=== PATIENT | female | born 1955 | race Caucasian/White ===

== ENCOUNTER → 2017-05-31 | Outpatient (REF) | payer OTHER ==
[2017-05-31 11:43] LABS: BASO # 0.1 10^3/uL (0.0-0.2); EOS # 0.4 10^3/uL (0.0-0.50); EOS % 4.8 % (0.0-3.0); IMMATURE GRANULOCYTE % 0.2 % (0-0); LYMPH # 3.5 10^3/uL (1.5-4.5); LYMPH % 37.5 % (24.0-44.0); MEAN CORPUSCULAR HEMOGLOBIN 29.3 pg (27.0-33.0); MEAN CORPUSCULAR HGB CONC 32.6 g/dl (32.0-36.5); MEAN CORPUSCULAR VOLUME 89.9 fl (80.0-96.0); MONO # 0.5 10^3/uL (0.0-0.8); MONO % 5.5 % (0.0-5.0); NEUTROPHILS # 4.7 10^3/uL (1.8-7.7); PLATELET COUNT, AUTOMATED 367 10^3/uL (150-450); RED CELL DISTRIBUTION WIDTH 13.6 % (11.5-14.5); WHITE BLOOD COUNT 9.2 10^3/uL (4.0-10.0)
[2017-05-31 12:08] LABS: ANION GAP 6 MEQ/L (8-16); BLOOD UREA NITROGEN 17 MG/DL (7-18); CALCIUM LEVEL 9.3 MG/DL (8.5-10.1); CARBON DIOXIDE LEVEL 28 MEQ/L (21-32); CHLORIDE LEVEL 108 MEQ/L (98-107); CREATININE FOR GFR 0.64 MG/DL (0.55-1.02); GLOMERULAR FILTRATION RATE > 60.0 (>51); GLUCOSE, FASTING 83 MG/DL (70-105); POTASSIUM SERUM 4.3 MEQ/L (3.5-5.1); SODIUM LEVEL 142 MEQ/L (136-145)
== END ==
LOC: M SFHCCLAY 08:39
PROVIDERS: ATTEND Family Medicine
DX: Z01.818 Encounter for other preprocedural examination (principal); K57.20 Diverticulitis of large intestine with perforation and abscess without bleeding

== ENCOUNTER → 2023-01-16 | Outpatient (REF) | payer OTHER ==
[2023-01-16 17:51] LABS: HEMOGLOBIN 13.9 g/dl (12.0-15.5); MEAN CORPUSCULAR HEMOGLOBIN 29.6 pg (27.0-33.0); MEAN CORPUSCULAR HGB CONC 32.3 g/dl (32.0-36.5); MEAN CORPUSCULAR VOLUME 91.5 fl (80.0-96.0); PLATELET COUNT, AUTOMATED 336 10^3/uL (150-450); WHITE BLOOD COUNT 8.8 10^3/uL (4.0-10.0)
[2023-01-16 18:15] LABS: ALBUMIN 3.6 G/DL (3.2-5.2); ALKALINE PHOSPHATASE 91 U/L (46-116); ALT/SGPT 33 U/L (7.0-40); AST/SGOT 22 U/L (<34); BILIRUBIN,TOTAL 0.8 MG/DL (0.3-1.2); BLOOD UREA NITROGEN 15 MG/DL (9-23); CALCIUM LEVEL 9.2 MG/DL (8.3-10.6); CARBON DIOXIDE LEVEL 23 MMOL/L (20-31); CHLORIDE LEVEL 103 MMOL/L (98-107); CHOLESTEROL LEVEL 178 MG/DL (<200); CHOLESTEROL RISK RATIO 3.52 (<5); CREATININE FOR GFR 0.89 MG/DL (0.55-1.30); GLOMERULAR FILTRATION RATE > 60.0 (>45); GLUCOSE, FASTING 83 MG/DL (74-106); HDL CHOLESTEROL 50.5 MG/DL (>40); LDL CHOLESTEROL 107.7 MG/DL (<100); NON-HDL-C 127.5 MG/DL; POTASSIUM SERUM 4.2 MMOL/L (3.5-5.1); SODIUM LEVEL 134 MMOL/L (136-145); THYROID STIMULATING HORMONE 2.033 uIU/ML (0.55-4.78); TOTAL PROTEIN 7.1 G/DL (5.7-8.2); TRIGLYCERIDES LEVEL 99 MG/DL (<150)
[2023-01-16 18:16] LABS: FREE T4 1.26 NG/DL (0.89-1.76)
== END ==
LOC: M LABDRAWC 16:54
PROVIDERS: ATTEND Nurse Practitioner Family
DX: E78.2 Mixed hyperlipidemia (principal); Z82.49 Family history of ischemic heart disease and other diseases of the circulatory system

== ENCOUNTER → 2024-04-29 | Outpatient (REF) | payer MEDICARE ==
[2024-04-29 12:09] LABS: ALBUMIN 3.4 G/DL (3.2-5.2); ALKALINE PHOSPHATASE 97 U/L (46-116); ALT/SGPT 23 U/L (7.0-40); AST/SGOT 15 U/L (<34); BASO # 0.1 10^3/uL (0.0-0.2); BILIRUBIN,TOTAL 0.3 MG/DL (0.3-1.2); BLOOD UREA NITROGEN 14 MG/DL (9-23); CALCIUM LEVEL 9.7 MG/DL (8.3-10.6); CARBON DIOXIDE LEVEL 29 MMOL/L (20-31); CHLORIDE LEVEL 104 MMOL/L (98-107); CHOLESTEROL LEVEL 197 MG/DL (<200); CHOLESTEROL RISK RATIO 3.51 (<5); CREATININE FOR GFR 0.78 MG/DL (0.55-1.30); EOS # 0.3 10^3/uL (0.0-0.5); EOS % 3.9 % (0.0-3.0); GLOMERULAR FILTRATION RATE > 60.0 (>45); GLUCOSE, FASTING 91 MG/DL (74-106); HEMATOCRIT 45.8 % (36.0-47.0); HEMOGLOBIN 14.7 g/dl (12.0-15.5); LDL CHOLESTEROL 118.6 MG/DL (<100); LYMPH # 2.2 10^3/uL (1.5-5.0); LYMPH % 26.5 % (24.0-44.0); MEAN CORPUSCULAR HEMOGLOBIN 29.2 pg (27.0-33.0); MEAN CORPUSCULAR HGB CONC 32.1 g/dl (32.0-36.5); MEAN CORPUSCULAR VOLUME 91.1 fl (80.0-96.0); MONO # 0.5 10^3/uL (0.0-0.8); MONO % 6.3 % (2.0-8.0); NEUTROPHILS # 5.2 10^3/uL (1.5-8.5); NEUTROPHILS % 62.1 % (36.0-66.0); PLATELET COUNT, AUTOMATED 343 10^3/uL (150-450); POTASSIUM SERUM 4.6 MMOL/L (3.5-5.1); RED BLOOD COUNT 5.03 10^6/uL (4.00-5.40); SODIUM LEVEL 136 MMOL/L (136-145); TOTAL PROTEIN 7.2 G/DL (5.7-8.2); TRIGLYCERIDES LEVEL 112 MG/DL (<150); WHITE BLOOD COUNT 8.4 10^3/uL (4.0-10.0)
[2024-04-29 12:11] LABS: FREE T4 1.27 NG/DL (0.89-1.76)
[2024-04-29 12:33] LABS: HEMOGLOBIN A1c 5.5 % (4.0-6.0)
== END ==
LOC: M SFHCCLAY 08:39
PROVIDERS: ATTEND Nurse Practitioner Family
DX: Z00.00 Encounter for general adult medical examination without abnormal findings (principal); F17.211 Nicotine dependence, cigarettes, in remission; K21.9 Gastro-esophageal reflux disease without esophagitis; Z13.220 Encounter for screening for lipoid disorders; Z13.1 Encounter for screening for diabetes mellitus; C53.9 Malignant neoplasm of cervix uteri, unspecified; Z86.39 Personal history of other endocrine, nutritional and metabolic disease; Z13.6 Encounter for screening for cardiovascular disorders

== ENCOUNTER → 2024-07-07 | Outpatient (CLI) | payer MEDICARE ==
[~2024-07-07] MED LIST: ISOVUE-370 76% 100ML VIAL As Ordered ONE
== END ==
LOC: M RAD 12:44
PROVIDERS: ATTEND Internal Medicine Hematology & Oncology
DX: C53.9 Malignant neoplasm of cervix uteri, unspecified (principal); Z90.49 Acquired absence of other specified parts of digestive tract; K43.9 Ventral hernia without obstruction or gangrene; I70.0 Atherosclerosis of aorta; J43.2 Centrilobular emphysema
CPT/HCPCS: 71260; 74177; Q9967

== ENCOUNTER → 2024-07-20 | Outpatient (CLI) | payer MEDICARE | LOC: M ONCR 08:58 | PROVIDERS: ATTEND General Practice | DX: C53.1 Malignant neoplasm of exocervix (principal); R59.9 Enlarged lymph nodes, unspecified; Z86.718 Personal history of other venous thrombosis and embolism; Z98.84 Bariatric surgery status; Z90.49 Acquired absence of other specified parts of digestive tract; Z87.891 Personal history of nicotine dependence; Z88.0 Allergy status to penicillin; Z88.1 Allergy status to other antibiotic agents ==

== ENCOUNTER → 2024-07-24 | Outpatient (CLI) | payer MEDICARE ==
[~2024-07-24] VITALS: Ht 162.6 cm; Wt 88.0 kg
[~2024-07-24] MED LIST changes: +ACET-683 PO; -ISOVUE-370 76% 100ML VIAL As Ordered ONE; +LIDO30CR18 TOP; +LIDOCAINE 1% MDV 20ML VIAL As Ordered ONE; +MIDAZOLAM INJ 2MG/2ML VIAL As Ordered ONE; +NS (Normal Saline) 0.9% 1,000 ML IV SCH; +ceFAZolin 2 GM/D5W 50 ML IV BAG As Ordered ONE; +fentaNYL 100 MCG/2 ML INJECTION As Ordered ONE
[2024-07-24 10:06] VITALS: TEMP 98.4
[2024-07-24] MEDS: ceFAZolin SOD 2 GM in IV 1 EA IV ONE (10:52)
[2024-07-24 11:56] VITALS: BP 128/82; O2SAT 99
== END ==
LOC: M IRPRO 09:18
PROVIDERS: ATTEND Internal Medicine Hematology & Oncology
DX: C53.9 Malignant neoplasm of cervix uteri, unspecified (principal)
CPT/HCPCS: 36561; 99152; J0690; J1642; J2250; J3010

== ENCOUNTER → 2024-07-28 | Outpatient (CLI) | payer MEDICARE ==
[~2024-07-28] MED LIST changes: -LIDOCAINE 1% MDV 20ML VIAL As Ordered ONE; -MIDAZOLAM INJ 2MG/2ML VIAL As Ordered ONE; -NS (Normal Saline) 0.9% 1,000 ML IV SCH; -ceFAZolin 2 GM/D5W 50 ML IV BAG As Ordered ONE; -fentaNYL 100 MCG/2 ML INJECTION As Ordered ONE
== END ==
LOC: M PLARAD 11:17
PROVIDERS: ATTEND General Practice
DX: C53.1 Malignant neoplasm of exocervix (principal)
CPT/HCPCS: 78815; A9552

== ENCOUNTER → 2024-11-02 | Outpatient (RCR) | payer MEDICARE ==
[~2024-11-02] MED LIST changes: +FLUC10TA PO; +LEVO1TAB39 PO; +ONDA-84 PO; +OXYB-54 PO; +PROC10TA5 PO
== END ==
LOC: M ONCR 10-13 07:51
PROVIDERS: ATTEND General Practice
DX: Z51.0 Encounter for antineoplastic radiation therapy (principal); C53.1 Malignant neoplasm of exocervix

== ENCOUNTER 2024-11-25 08:34 | Outpatient (RCR) | payer MEDICARE ==
[~2024-11-25 08:34] MED LIST changes: -PROHANCE 279.3MG/ML 15ML VIAL As Ordered ONE; -PROHANCE 279.3MG/ML 5ML VIAL As Ordered ONE
== END 2024-12-02 ==
LOC: M ONCR 08:34
PROVIDERS: ATTEND General Practice
DX: Z51.0 Encounter for antineoplastic radiation therapy (principal); C53.1 Malignant neoplasm of exocervix

== ENCOUNTER → 2024-11-25 | Outpatient (CLI) | payer MEDICARE ==
[~2024-11-25] MED LIST changes: +NYST-38 SSP; +PROHANCE 279.3MG/ML 15ML VIAL As Ordered ONE; +PROHANCE 279.3MG/ML 5ML VIAL As Ordered ONE
== END ==
LOC: M RAD 09:34
PROVIDERS: ATTEND General Practice
DX: C53.1 Malignant neoplasm of exocervix (principal)

== ENCOUNTER → 2025-03-01 | Outpatient (CLI) | payer MEDICARE | LOC: M PLARAD 09:53 | PROVIDERS: ATTEND General Practice | DX: C53.1 Malignant neoplasm of exocervix (principal) | CPT/HCPCS: 78815; A9552 ==

== ENCOUNTER → 2025-03-12 | Outpatient (CLI) | payer MEDICARE | LOC: M ONCR 09:39 | PROVIDERS: ATTEND General Practice | DX: C53.1 Malignant neoplasm of exocervix (principal); Z79.899 Other long term (current) drug therapy; Z88.0 Allergy status to penicillin; Z92.21 Personal history of antineoplastic chemotherapy; Z92.3 Personal history of irradiation ==

== ENCOUNTER → 2025-05-21 | Outpatient (CLI) | payer MEDICARE ==
[~2025-05-21] MED LIST changes: +FAMO20TA PO; +METO5TAB2 PO
[2025-05-21 14:28] LABS: BASO # 0.0 10^3/uL (0.0-0.2); BASO % 0.4 % (0.0-1.0); EOS # 0.2 10^3/uL (0.0-0.5); EOS % 2.4 % (0.0-3.0); LYMPH # 0.7 10^3/uL (1.5-5.0); LYMPH % 10.8 % (24.0-44.0); MONO # 0.5 10^3/uL (0.0-0.8); MONO % 6.8 % (2.0-8.0); NEUTROPHILS # 5.4 10^3/uL (1.5-8.5); NEUTROPHILS % 79.3 % (36.0-66.0); PLATELET COUNT, AUTOMATED 308 10^3/uL (150-450)
[2025-05-21 14:56] LABS: ALT/SGPT < 9 U/L (7.0-40); AST/SGOT 13 U/L (<34); CALCIUM LEVEL 9.3 MG/DL (8.3-10.6); CARBON DIOXIDE LEVEL 27 MMOL/L (20-31); CHLORIDE LEVEL 104 MMOL/L (98-107); CREATININE FOR GFR 0.71 MG/DL (0.55-1.30); GLOMERULAR FILTRATION RATE > 90.0 (>45); POTASSIUM SERUM 4.2 MMOL/L (3.5-5.1); SODIUM LEVEL 140 MMOL/L (136-145)
[2025-05-21 15:05] LABS: ESTIMATED AVERAGE GLUCOSE 108.0 MG/DL (60-110)
[2025-05-24] MEDS: SODIUM CHLORIDE 0.9% INJ 10 ML SYR IV PRN (14:30)
== END ==
LOC: M ONCR 13:07
PROVIDERS: ATTEND General Practice
DX: C53.1 Malignant neoplasm of exocervix (principal); R19.7 Diarrhea, unspecified; R11.0 Nausea; R12 Heartburn; Z79.899 Other long term (current) drug therapy; Z92.21 Personal history of antineoplastic chemotherapy; Z92.3 Personal history of irradiation
CPT/HCPCS: 36591; 80053; 83036; 85025; J1642

== ENCOUNTER 2025-06-06 09:22 | Emergency (ER) | payer MEDICARE ==
[~2025-06-06] VITALS: Ht 154.9 cm; Wt 72.3 kg
[2025-06-06] MEDS ORDERED: OXYB-54 (09:32)
[2025-06-06] MEDS: NS (Normal Saline) 0.9% 1,000 ML IV ONE (11:10)
[2025-06-06] MEDS: HALOPERIDOL LACTATE 5 MG/ML VIAL IV STA (11:10)
[2025-06-06 11:13] LABS: BASO # 0.0 10^3/uL (0.0-0.2); BASO % 0.4 % (0.0-1.0); EOS # 0.1 10^3/uL (0.0-0.5); EOS % 1.5 % (0.0-3.0); LYMPH # 0.7 10^3/uL (1.5-5.0); LYMPH % 9.4 % (24.0-44.0); MONO # 0.6 10^3/uL (0.0-0.8); MONO % 7.8 % (2.0-8.0); NEUTROPHILS # 6.4 10^3/uL (1.5-8.5); NEUTROPHILS % 80.8 % (36.0-66.0); PLATELET COUNT, AUTOMATED 348 10^3/uL (150-450)
[2025-06-06 11:45] LABS: ALT/SGPT 11.0 U/L (7.0-40); AST/SGOT 14.0 U/L (<34); CALCIUM LEVEL 9.6 MG/DL (8.3-10.6); CARBON DIOXIDE LEVEL 30.0 MMOL/L (20-31); CHLORIDE LEVEL 99.0 MMOL/L (98-107); CREATININE FOR GFR 0.84 MG/DL (0.55-1.30); GLOMERULAR FILTRATION RATE 76.1 (>45); MAGNESIUM LEVEL 1.8 MG/DL (1.8-2.4); POTASSIUM SERUM 4.1 MMOL/L (3.5-5.1); SODIUM LEVEL 139.0 MMOL/L (136-145)
[2025-06-06 13:09] VITALS: BP 140/63; TEMP 97; O2SAT 96
[2025-06-07] MEDS ORDERED: HEPARIN LOCK FLUSH 100 UNITS/ML 3 ML SYRINGE IV SCH (09:00)
[2025-06-07] MEDS ORDERED: SODIUM CHLORIDE 0.9% INJ 10 ML SYR IV SCH (09:00)
== END 2025-06-06 13:13 | disposition home or self-care (01) ==
LOC: M ED 09:22
DX: K21.9 Gastro-esophageal reflux disease without esophagitis (principal); F12.188 Cannabis abuse with other cannabis-induced disorder; Z88.0 Allergy status to penicillin; Z91.0110 Allergy to milk products, unspecified; Z79.899 Other long term (current) drug therapy
CPT/HCPCS: 80048; 80076; 83690; 83735; 85025; 96361; 96374; 99284; J1630

== ENCOUNTER → 2025-06-08 | Outpatient (CLI) | payer MEDICARE ==
[~2025-06-08] MED LIST changes: +OXYB-54
== END ==
LOC: M ONCR 13:44
PROVIDERS: ATTEND Radiology Radiation Oncology
DX: C53.1 Malignant neoplasm of exocervix (principal); K43.9 Ventral hernia without obstruction or gangrene; K57.90 Diverticulosis of intestine, part unspecified, without perforation or abscess without bleeding; Z79.899 Other long term (current) drug therapy; Z92.21 Personal history of antineoplastic chemotherapy; Z92.3 Personal history of irradiation; Z88.0 Allergy status to penicillin; Z88.1 Allergy status to other antibiotic agents; Z91.018 Allergy to other foods

== ENCOUNTER → 2025-06-15 | Outpatient (CLI) | payer MEDICARE ==
[~2025-06-15] MED LIST changes: +LACT20EL PO
== END ==
LOC: M RAD 11:00
PROVIDERS: ATTEND General Practice
DX: C53.1 Malignant neoplasm of exocervix (principal); N32.89 Other specified disorders of bladder; I70.0 Atherosclerosis of aorta; I70.8 Atherosclerosis of other arteries; M43.17 Spondylolisthesis, lumbosacral region
CPT/HCPCS: 74176; G0463

== ENCOUNTER → 2025-06-15 | Outpatient (CLI) | payer MEDICARE | LOC: M ONCR 09:57 | PROVIDERS: ATTEND General Practice | DX: N32.89 Other specified disorders of bladder (principal) ==